=== PATIENT | female | born 1995 | race Two or more races ===

== ENCOUNTER 2021-07-18 17:46 | Emergency (ER) | payer OTHER ==
[~2021-07-18] VITALS: Ht 172.7 cm; Wt 117.9 kg
[2021-07-18 17:47] VITALS: BP 143/90
[2021-07-18 18:28] LABS: Urine Bacteria NONE SEEN /hpf (None Seen); Urine Blood TRACE /uL (Negative); Urine Specific Gravity 1.024 (1.001-1.035); Urine WBC 54 /hpf (0 - 5)
== END 2021-07-18 18:31 | disposition left against medical advice (07) ==
LOC: ER 17:46
DX: R10.11 Right upper quadrant pain (principal); Z53.21 Procedure and treatment not carried out due to patient leaving prior to being seen by health care provider
CPT/HCPCS: 81001